=== PATIENT | male | born 1975 | race Caucasian/White ===

== ENCOUNTER 2018-08-20 21:22 | Emergency (ER) | payer OTHER ==
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
[2018-08-20] MEDS ORDERED: Diphtheria,Pertussis(Acell),Tetanus Vaccine 0.5 ML Syringe IM ONE (21:34)
[2018-08-20] MEDS ORDERED: Iopamidol 755 MG/ML 500 ML Multipack Bottle IVPUSH ONE (21:57)
[2018-08-20] MEDS ORDERED: Sodium Chloride 0.9% 2.5 ML Syringe FLUSH PRN (22:15)
[2018-08-20] MEDS ORDERED: Sodium Chloride 0.9% 10 ML Syringe FLUSH PRN (22:15)
[2018-08-20 22:38] LABS: CHLORIDE,CL 103 mmol/L (98-107); SODIUM,NA 140 mmol/L (136-148)
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
== END 2018-08-20 23:45 ==
LOC: MW.ED 21:22
DX: S20.311A Abrasion of right front wall of thorax, initial encounter (principal); S50.812A Abrasion of left forearm, initial encounter; S00.81XA Abrasion of other part of head, initial encounter; T14.8XXA Other injury of unspecified body region, initial encounter; Z02.89 Encounter for other administrative examinations; Z23 Encounter for immunization; V89.2XXA Person injured in unspecified motor-vehicle accident, traffic, initial encounter
CPT/HCPCS: 36415; 70450; 71260; 72125; 74177; 80053; 81001; 84484; 85025; 85610; 90471; 90715; 93005; 99285; Q9967

== ENCOUNTER 2022-10-08 09:07 | Emergency (ER) | payer OTHER ==
[2022-10-08] MEDS ORDERED: HYDROmorphone 1 MG/ML Syringe IVPUSH ONE (10:08)
[2022-10-08] MEDS ORDERED: Sodium Chloride 0.9% 1,000 ML IV ONE (10:08)
[2022-10-08] MEDS ORDERED: Ondansetron 4 MG/2 ML SDV IVPUSH ONE (10:08)
[2022-10-08 10:20] LABS: BASOPHILS PERCENT AUTO 0.3 % (0.0-1.5); EOSINOPHILS ABSOLUTE AUTO 0.1 K/uL (0.0-0.7); LYMPHOCYTES ABSOLUTE AUTO 1.3 K/uL (0.6-2.4); LYMPHOCYTES PERCENT AUTO 12.2 % (16.0-40.0); MEAN CORPUSCULAR HEMOGLOBIN 32.3 pg (27.0-32.0); MEAN CORPUSCULAR VOLUME 94.9 fL (80.0-98.0); MONOCYTES ABSOLUTE AUTO 0.6 K/uL (0.0-0.8); MONOCYTES PERCENT AUTO 5.6 % (0.0-15.0); NEUTROPHILS ABSOLUTE AUTO 8.8 K/uL (1.4-5.7); NEUTROPHILS PERCENT AUTO 80.9 % (48.0-80.0); NRBC ABSOLUTE 0 K/uL; PLATELET COUNT,PLT 181 K/uL (150-400); RED BLOOD CELL COUNT 5.27 M/uL (4.50-5.90); WHITE BLOOD CELL COUNT,WBC 10.82 K/uL (4.0-11.0)
[2022-10-08 10:36] LABS: A/G RATIO 1.1 (0.9-1.6); ALBUMIN 3.7 g/dL (3.4-5.0); BILIRUBIN TOTAL 0.3 mg/dL (0.2-1.0); CALCIUM 8.9 mg/dL (8.5-10.1); CREATININE 0.9 mg/dL (0.8-1.3); EST CRCL DRUG DOSING (CG) 105.9 mL/min; POTASSIUM,K 4.7 mmol/L (3.5-5.1); PROTEIN TOTAL,TP 7.2 g/dL (6.4-8.2)
[2022-10-08 10:53] LABS: LACTIC ACID 1.9 mmol/L (0.4-2.0)
[2022-10-08] MEDS ORDERED: Iopamidol 755 MG/ML 500 ML Multipack Bottle IVPUSH STA (11:12)
[2022-10-08 12:01] LABS: APPEARANCE,URINE CLEAR; BILIRUBIN,URINE NEGATIVE (NEGATIVE); COLOR,URINE YELLOW; GLUCOSE,URINE 250 mg/dL (NEGATIVE); KETONES,URINE NEGATIVE (NEGATIVE); LEUKOCYTE ESTERASE,URINE NEGATIVE (NEGATIVE); NITRITE,URINE NEGATIVE (NEGATIVE); OCCULT BLOOD,URINE NEGATIVE (NEGATIVE); PROTEIN,URINE NEGATIVE (NEGATIVE); UROBILINOGEN,URINE 0.2 EU/dL (<2.0)
== END 2022-10-08 12:14 | disposition home or self-care (01) ==
LOC: MW.ED 09:07
DX: K43.9 Ventral hernia without obstruction or gangrene (principal); I10 Essential (primary) hypertension; E11.9 Type 2 diabetes mellitus without complications; F17.210 Nicotine dependence, cigarettes, uncomplicated; Z79.899 Other long term (current) drug therapy; Z79.84 Long term (current) use of oral hypoglycemic drugs
CPT/HCPCS: 36415; 74177; 80053; 81003; 83605; 85025; 96361; 96374; 96375; 99284; J1170; J2405; J7030; Q9967

== ENCOUNTER 2023-03-23 09:01 | Day surgery (SDC) | payer OTHER ==
[~2023-03-23 09:01] MED LIST: Albuterol 0.083% 2.5 MG/3 ML Neb Soln NEB PRN; HYDROmorphone 1 MG/ML Syringe IVPUSH PRN; Lactated Ringers 1,000 ML IV SCH; Metoclopramide 10 MG/2 ML SDV IVPUSH PRN; Morphine 2 MG/ML SYRINGE IVPUSH PRN; Naloxone 0.4 MG/ML SDV IVPUSH PRN; Ondansetron 4 MG/2 ML SDV IVPUSH PRN; Scopolamine 1.5 MG Transdermal Patch TOP ONE; Sodium Chloride 0.9% 10 ML Syringe FLUSH PRN; Sodium Chloride 0.9% 2.5 ML Syringe FLUSH PRN; Sodium Chloride 0.9% 20 ML SDV IV PRN; ceFAZolin 2 GM in Sodium Chloride 0.9% 50 ML IV ONE; droPERidol 5 MG/2 ML SDV IVPUSH PRN; fentaNYL 50 MCG/ML SDV IVPUSH PRN
[2023-03-23] MEDS ORDERED: Ondansetron 4 MG/2 ML SDV ONE (09:17)
[2023-03-23] MEDS ORDERED: Sugammadex Sodium 200 MG/2 ML VIAL ONE (09:17)
[2023-03-23] MEDS ORDERED: Rocuronium Bromide 50 MG/5 ML Syringe ONE (09:17)
[2023-03-23] MEDS ORDERED: Lidocaine 2% 5 ML SDV ONE (09:17)
[2023-03-23] MEDS ORDERED: Metoclopramide 10 MG/2 ML SDV ONE (09:17)
[2023-03-23] MEDS ORDERED: Dexamethasone 4 MG/ML 5 ML MDV ONE (09:17)
[2023-03-23] MEDS ORDERED: Ropivacaine 0.5% 5 MG/ML 30 ML SDV ONE (09:30)
[2023-03-23] MEDS ORDERED: fentaNYL 100 MCG/2 ML SDV ONE (09:57)
[2023-03-23] MEDS ORDERED: Morphine 10 MG/ML SDV ONE (09:57)
[2023-03-23] MEDS ORDERED: Bupivacaine 0.5% 30 ML SDV ONE (10:02)
[2023-03-23] MEDS ORDERED: ceFAZolin 2 GM Vial ONE (10:30)
[2023-03-23] MEDS ORDERED: Phenylephrine HCl 0.5 MG/5 ML AMP ONE ×2 (10:37→11:24)
[2023-03-23] MEDS ORDERED: Magnesium Sulfate (4.06 MEQ/ML) 5 GM/10 ML SDV ONE (10:39)
[2023-03-23] MEDS ORDERED: Calcium Chloride 10% 1 GM/10 ML Syringe ONE (10:41)
[2023-03-23] MEDS ORDERED: propofoL 50 ML ONE (11:24)
== END 2023-03-23 12:46 | disposition home or self-care (01) ==
LOC: MW.SDS 09:01
PROVIDERS: ATTEND Surgery
DX: K43.9 Ventral hernia without obstruction or gangrene (principal); K42.9 Umbilical hernia without obstruction or gangrene; I10 Essential (primary) hypertension; E11.9 Type 2 diabetes mellitus without complications; E66.9 Obesity, unspecified; Z68.31 Body mass index [BMI] 31.0-31.9, adult; F17.210 Nicotine dependence, cigarettes, uncomplicated; Z79.84 Long term (current) use of oral hypoglycemic drugs; Z79.899 Other long term (current) drug therapy
CPT/HCPCS: 49591; 64488; 82947; J0131; J0690; J1100; J2270; J2371; J2405; J2704; J2765; J2795; J3010; J3475; J3490; J7120

== ENCOUNTER 2023-12-22 10:00 | Emergency (ER) | payer OTHER | END 2023-12-22 13:17 | disposition home or self-care (01) | LOC: MW.ED 10:00 | DX: S62.360A Nondisplaced fracture of neck of second metacarpal bone, right hand, initial encounter for closed fracture (principal); I10 Essential (primary) hypertension; E11.9 Type 2 diabetes mellitus without complications; E66.9 Obesity, unspecified; Z79.84 Long term (current) use of oral hypoglycemic drugs; Z79.899 Other long term (current) drug therapy; Z75.8 Other problems related to medical facilities and other health care; Y04.8XXA Assault by other bodily force, initial encounter | CPT/HCPCS: 29125; 73100-26-RT; 73100-RT; 73120-26-RT; 73120-RT; 99283; 99283-25 ==